=== PATIENT | female | born 2000 | race Caucasian/White ===

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

== ENCOUNTER 2022-07-10 16:05 | Emergency (ER) | payer OTHER, SELFPAY ==
[2022-07-10 16:16] VITALS: BP 129/70; PULSE 86; RESP 18; TEMP 37.2; O2SAT 99; BMI 20.1
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
== END 2022-07-10 17:43 | disposition home or self-care (01) ==
PROVIDERS: Emergency Provider Emergency Medicine
DX: S39.012A Strain of muscle, fascia and tendon of lower back, initial encounter (principal); R51.9 Headache, unspecified; V43.52XA Car driver injured in collision with other type car in traffic accident, initial encounter; Y93.9 Activity, unspecified; Y92.410 Unspecified street and highway as the place of occurrence of the external cause; Y99.9 Unspecified external cause status
CPT/HCPCS: 99283

== ENCOUNTER 2022-09-15 22:08 | Emergency (ER) | payer MEDICAID, SELFPAY ==
[2022-09-15 22:16] VITALS: BP 119/79; PULSE 83; RESP 18; TEMP 36.8; O2SAT 100; BMI 21.0
--- OUTSIDE RECORDS SUMMARY | 2022-09-15 23:27 | XMS_ITS | Continuity of Care Document ---
Author Name Unknown Organization [facility] er Address [address] [address]- Care Team Providers Care Devops Consultant Name Role Phone Jun Leslie GRULLON Primary Care Physician Encounter [facility] Date(s): 05/06/19 - 06/11/[address] [address]- [facility] Attending Physician: Carmine Mcadams Admitting Physician: Carmine Mcadams Allergies, Adverse Reactions, Alerts No Known Medication Allergies
--- OUTSIDE RECORDS SUMMARY | 2022-09-15 23:27 | XMS_ITS | Continuity of Care Document ---
Author Name Unknown Organization [facility] er Address [address] [address]- Care Team Providers Care Geodetic Survey Director Name Role Phone Jun Leslie GRULLON Primary Care Physician [phone] Encounter [facility] Date(s): 05/06/19 - 07/02/[address] [address]- [facility] Attending Physician: Carmine Mcadams Admitting Physician: Carmine Mcadams Allergies, Adverse Reactions, Alerts No Known Medication Allergies
--- OUTSIDE RECORDS SUMMARY | 2022-09-15 23:27 | XMS_ITS | Continuity of Care Document ---
Author Name Unknown Organization [facility] er Address [address] [place] [address]- Care Team Providers Care Hand I Tube Bender Name Role Phone Jun Leslie GRULLON Primary Care Physician Encounter [facility] Date(s): 05/06/19 - 06/25/[address] [address]- [facility] Attending Physician: Carmine Mcadams Admitting Physician: Carmine Mcadams Allergies, Adverse Reactions, Alerts No Known Medication Allergies
--- NOTE | 2022-09-15 23:33 | ED_ITS ---
HPI - Female Genitourinary General Chief complaint: Urogenital-Female Stated complaint: ? cyst vaginal area Time Seen by Provider: 09/15/22 23:24 Source: patient Mode of arrival: ambulatory Limitations: no limitations History of Present Illness HPI Narrative: 22 year old female currently sexually active presenting to the emergency department for STD testing and a small lump to the left labia times few days worsening. Patient reports that she is having some brown discharge that is foul smelling however she is not sure if this is her. Or abnormal discharge. Patient also reporting swelling to the left labia she tells me she is not sure if it is a bump for an abscess, she tells me it is slightly uncomfortable and itchy. Denies fevers, chills, nausea, vomiting, headache, vision changes, abdominal pain, chest pain, shortness of breath, changes in bowel habits, dysuria. Patient is interested in prophylactic STD treatment Related Data Previous Rx's Medication Instructions Recorded prednisone 50 mg tablet 50 mg PO DAILY 5 days #5 tabs 04/01/20 ibuprofen 400 mg tablet 400 mg PO Q6H PRN pain #20 tabs 07/10/22 doxycycline hyclate 100 mg capsule 100 mg PO BID 10 days #20 caps 09/15/22 metronidazole 500 mg tablet 500 mg PO BID 7 days #14 tabs 09/15/22 Allergies Allergy/AdvReac Type Severity Reaction Status Date / Time No Known Allergies Allergy Verified 09/15/22 22:18 [No Known Allergies*] Review of Systems Review of Systems: Constitutional : No Weight loss, No Fever, No Chills, No Fatigue, No Malaise ENT/Mouth : No sore throat, No Rhinorrhea Eyes: No Eye Pain, No Swelling, No Redness Cardiovascular : No Chest Pain, No SOB, No Dyspnea on Exertion, No Orthopnea, No Edema, No Palpitations Respiratory : No Cough, No Sputum, No Wheezing Gastrointestinal : No Nausea, No Vomiting, No Diarrhea, No Constipation, No abdominal Pain, No Hematochezia, No Melena Genitourinary : No Dysuria, No Urinary Frequency, No Hematuria, + vaginal discharge Musculoskeletal : No joint pain, No Myalgias, No Joint Swelling Skin : No Skin Lesions, No rash Neuro : No Weakness, No Numbness, No Dizziness, No Headache Psych : No Anxiety/Panic, No Depression Heme/Lymph: No Bruising, No Bleeding,No Lymphadenopathy Endocrine : No Polyuria, No Polydipsia All other systems reviewed and are negative Yes all other systems are reviewed and are negative [facility] Past Medical History Attestation statement: The following information was validated with the patient. Source: old records reviewed and nursing notes reviewed Medical History Patient denies medical problems Surgical History No pertinent past surgical history Social History Social History Alcohol intake: never Advance Directives: No Physical Exam Vital Signs: Vital Signs: Last Vital Signs Temp 98.2 F 09/15/22 22:16 Pulse 83 09/15/22 22:16 Resp 18 09/15/22 22:16 BP 119/79 09/15/22 22:16 Pulse Ox 100 09/15/22 22:16 O2 Del Method Room Air 09/15/22 22:16 BMI result Body Mass Index 21.0 Vital signs stable Appearance: Alert.? Oriented X3.? No acute distress.? Head: Normocephalic, atraumatic, no step-offs or deformities Eyes: Pupils equal, round and reactive to light.? ENT: Pharynx normal.? Neck: Normal inspection.? Neck supple.? CVS: Normal heart rate and rhythm.? Pulses normal.? Respiratory: No respiratory distress.? Breath sounds normal.? Abdomen: Soft and nontender.? Skin: Skin warm and dry.? Normal skin color.? Normal skin turgor.? Extremities: No lower extremity edema.? No calf ttp. 5/5 strength to bilateral upper and lower extremities Sensitive exam: Patient refusing internal exam however external exam with mild swelling to the left labia, unable to appreciate a bartholian cyst or abscess. Foul smelling discharge noted appears yellow/green. Neuro: Oriented X 3.? No motor deficit.? No sensory deficit. CN 2-12 intact Course Reevaluation(s) Reevaluation #1: Patient to be discharged. Patient com medications here. Advised to follow-up with PCP and OBGYN. Educated patient on diagnosis and treatment plan, answered all question, patient verbalizes understanding. At this time patient will be discharged home, advised to return with new or worsening symptoms. Educated on worrisome signs and symptoms and when to return. At this time I feel comfortable discharge home. Time: 23:48 Medications Administered Discontinued Medications Generic Name Dose Route Start Last Admin Trade Name Harriett PRN Reason Stop Dose Admin Ceftriaxone Sodium 500 mg/ 0 mg 09/15/22 23:34 09/16/22 00:02 Lidocaine HCl 1 ml IM 09/15/22 23:35 500 kit ONCE ONE Administration Doxycycline Monohydrate 100 mg 09/15/22 23:34 09/16/22 00:02 Doxycycline Monohydrate 100 Mg Capsule PO 09/15/22 23:35 100 mg ONCE ONE Administration Metronidazole 500 mg 09/15/22 23:34 09/16/22 00:02 Metronidazole 500 Mg Tablet PO 09/15/22 23:35 500 mg ONCE ONE Administration Medical Decision Making Medical Decision Making [facility] Narrative: 2348 22-year-old female presents for evaluation of a swollen left labia she has concern for possible cyst and vaginal discharge concern for STDs. Physical exam significant for Patient refusing internal exam however external exam with mild swelling to the left labia, unable to appreciate a bartholian cyst or abscess. Foul smelling discharge noted appears yellow/green. Patient adamantly refusing pelvic exam Concerns for STDs. No signs of herpes on exam. Denies painful intercourse unlikely that this is PID Patient agrees to prophylactic treatment for gonorrhea, chlamydia and trichomonas. 500mg IM ceftriaxone has been given here and scripts for doxycycline 100 mg po BID X 7 days and metronidazole 500 mg po BID X 7 days have been given to the patient. Educated on safe sex practices, full pannel STD testing and speaking to? partners on possible STD. Differential Diagnosis Differential Diagnoses: The differential diagnosis associated with the presentation includes Concerns for STDs. No signs of herpes on exam. Denies painful intercourse unlikely that this is PID Admission/Observation Consideration of admission/observation: Escalation of care including admission/observation considered Not indicated Core Measures AMI core measures followed: Yes Measure exclusions: not indicated Critical Care Time Critical Care Time Critical Care Time: No Discharge Plan Discharge Clinical Impression: Encounter for assessment of STD exposure, Swelling of labia Patient Disposition: Home, Self-Care Additional Instructions: Take your medications as prescribed. If you were prescribed antibiotics today, it is important that you take your medication to their entirety, do not skip any doses, do not finish them early. Follow-up with your primary care provider this week. Return to the emergency department with new or worsening symptoms. Such as fevers, chills, chest pain, shortness of breath, nausea, vomiting, dizziness, headache, vision changes, lethargy In case of emergency call 911 You were treated here today with ceftriaxone, a medication that treats gonorrhea. I have sent to your pharmacy Metronidazole that covers trichomonas, and Doxycycline which covers for chlamydia. Please be reevaluated by a healthcare provider after completing your antibiotics. Do not stop them early, do not skip any doses. Until you are reevaluated by a health care provider please practice safe sex as disucussed. Please also have a conversation with your sexual partners.? I also advise you to obtain full panel STD testing to test for other STDs including HIV, Hepatitis B & C and syphilis with your PCP or a local clinic. Apply warm compresses to affected area Prescriptions: New doxycycline hyclate 100 mg capsule 100 mg PO BID 10 Days Qty: 20 0RF metronidazole 500 mg tablet 500 mg PO BID 7 Days Qty: 14 0RF No Action prednisone 50 mg tablet 50 mg PO DAILY 5 Days Qty: 5 0RF ibuprofen 400 mg tablet 400 mg PO Q6H PRN (Reason: pain) Qty: 20 0RF Referrals: [facility] [place] [facility] [Provider Group] - 2 days [facility] [Primary Care Provider] - 2 days
[2022-09-16] MEDS: Doxycycline Monohydrate 100 MG CAPSULE PO (00:02)
[2022-09-16] MEDS: metroNIDAZOLE 500 MG TABLET PO (00:02)
[2022-09-16] MEDS: cefTRIAXone sodium 500 MG, Lidocaine HCl 1 % MPF 1 ML IM (00:02)
[2022-09-16 00:19] LABS: Appearance Urine Cloudy; Color Urine Yellow; Glucose Urine UA Negative (Negative); Leukocyte Esterase Urine Moderate (2+) (Negative); Nitrite Urine Negative (Negative); PH 5.5 (5.0-9.0); Specific Gravity - Urine >= 1.030 (1.005-1.025); UMIC TRIGGER UACC YES; Urine Blood Trace (Negative); Urine Ketones Trace mg/dL (Negative); Urine Protein 30 (1+) mg/dL (Neg-Trace)
[2022-09-16 00:21] LABS: UPreg QC Valid YES; Urine Pregnancy NEGATIVE (NEGATIVE)
[2022-09-16 00:23] LABS: Bacteria Urine Trace (None Seen); Hyaline Casts Urine 0-2 /LPF (0-2); RBC Urine >20 /HPF (0-2); UACC Culture Trigger YES; WBC Urine 21-50 /HPF (0-5)
[2022-09-16 05:59] LABS: CT PCR DETECTED (Not Detect.); NG PCR NOT DETECTED (Not Detect.)
== END 2022-09-16 00:23 | disposition home or self-care (01) ==
PROVIDERS: Physician Assistant; Emergency Provider Internal Medicine
DX: N76.2 Acute vulvitis (principal); Z20.2 Contact with and (suspected) exposure to infections with a predominantly sexual mode of transmission; Z79.899 Other long term (current) drug therapy
CPT/HCPCS: 0353U; 81001; 81025; 87086; 96372; 99282; 99284; J0696

== ENCOUNTER 2022-09-27 21:18 | Emergency (ER) | payer MEDICAID, SELFPAY ==
[2022-09-27 21:20] VITALS: BP 117/77; PULSE 74; RESP 18; TEMP 37.1; O2SAT 99; BMI 29.9
--- NOTE | 2022-09-27 23:27 | ED.FEMALEGU ---
HPI - Female Genitourinary General Chief complaint: Urogenital-Female Stated complaint: Abscess on vaginal area Time Seen by Provider: 09/27/22 22:39 Source: patient Mode of arrival: ambulatory History of Present Illness HPI Narrative: 22-year-old female who presents for evaluation labial swelling that was initially evaluated on 09/15. Patient denies any further difficulties or complaints. Related Data Previous Rx's Medication Instructions Recorded prednisone 50 mg tablet 50 mg PO DAILY 5 days #5 tabs 04/01/20 ibuprofen 400 mg tablet 400 mg PO Q6H PRN pain #20 tabs 07/10/22 doxycycline hyclate 100 mg capsule 100 mg PO BID 10 days #20 caps 09/15/22 metronidazole 500 mg tablet 500 mg PO BID 7 days #14 tabs 09/15/22 Allergies Allergy/AdvReac Type Severity Reaction Status Date / Time No Known Allergies Allergy Verified 09/27/22 21:20 [No Known Allergies*] Review of Systems Review of Systems: Pertinent positives and negatives as stated in HPI [facility] Past Medical History Source: nursing notes reviewed Medical History Patient denies medical problems Surgical History No pertinent past surgical history Social History Social History Alcohol intake: never Advance Directives: No Advance Directives Information Provided: No Physical Exam Vital Signs: Vital Signs: Last Vital Signs Temp 98.8 F 09/27/22 21:20 Pulse 74 09/27/22 21:20 Resp 18 09/27/22 21:20 BP 117/77 09/27/22 21:20 Pulse Ox 99 09/27/22 21:20 O2 Del Method Room Air 09/27/22 21:20 BMI result Body Mass Index 29.9 VITAL SIGNS: Reviewed. GENERAL: Well developed, well nourished, in no acute distress. HEAD: Normocephalic/atraumatic EYES: PERRLA, EOMI LUNGS: Normal breath sounds. No adventitious sounds or accessory muscle use. SpO2<99> CARDIOVASCULAR: Regular rate and rhythm without noted murmurs ABDOMEN: Soft, non-tender, non-distended with bowel sounds. : [Managing Broker-Neli]- there is no labial swelling no evidence of are the 1 abscess/cyst MUSCULOSKELETAL: No tenderness, deformities, or effusions noted on gross inspection. EXTREMITIES: No cyanosis, clubbing or edema. SKIN: Inspection of the skin reveals no rashes NEUROLOGIC: Alert and oriented x 4. Strength and sensation to light touch were grossly intact x 4. Medical Decision Making Medical Decision Making MDM Narrative: 22-year-old female who presents for evaluation labial swelling, under evaluation with cobol application developer at bedside there are no noted abnormalities at this time. Patient reassured and discharged home in stable condition. Patient was treated for STD at appointment on 09/15. External Record Review External record reviewed: Outpatient record and Prior outpatient labs Discharge Plan Discharge Clinical Impression: Abscess re-check Patient Disposition: Home, Self-Care Instructions: Warm Compress or Soak (ED) Additional Instructions: Return to the emergency room for any worsening symptoms. Prescriptions: No Action prednisone 50 mg tablet 50 mg PO DAILY 5 Days Qty: 5 0RF ibuprofen 400 mg tablet 400 mg PO Q6H PRN (Reason: pain) Qty: 20 0RF doxycycline hyclate 100 mg capsule 100 mg PO BID 10 Days Qty: 20 0RF metronidazole 500 mg tablet 500 mg PO BID 7 Days Qty: 14 0RF
[2022-09-27 23:40] VITALS: BP 120/62; PULSE 76; RESP 16; O2SAT 99
== END 2022-09-27 23:48 | disposition home or self-care (01) ==
PROVIDERS: Emergency Provider Student in an Organized Health Care Education/Training Program
DX: N76.4 Abscess of vulva (principal)
CPT/HCPCS: 99283

== ENCOUNTER 2023-03-10 15:22 | Outpatient (AMB) | payer MEDICAID, SELFPAY ==
[2023-03-10 15:24] VITALS: BP 118/68; PULSE 78; O2SAT 99; BMI 29.4
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
== END 2023-03-10 15:55 | disposition home or self-care (01) ==
PROVIDERS: Visit Provider Nurse Practitioner Family
DX: Z00.00 Encounter for general adult medical examination without abnormal findings (principal); M54.50 Low back pain, unspecified; Z11.3 Encounter for screening for infections with a predominantly sexual mode of transmission; F41.9 Anxiety disorder, unspecified; Z55.0 Illiteracy and low-level literacy
CPT/HCPCS: 99385

== ENCOUNTER 2023-03-10 15:59 | Outpatient (REF) | payer OTHER, SELFPAY ==
[2023-03-10 16:30] LABS: MANUAL DIFF FLAG NO
[2023-03-10 18:07] LABS: Basophils Percent Auto 0.4 % (0-2); Eosinophils Absolute Auto 0.1 X10*3/uL (0.0-0.4); Hematocrit 40.8 % (37.0-47.0); Hemoglobin 12.6 g/dl (12.0-16.0); Imm Gran Abs Auto 0.01 X10*3/uL (0.00-0.03); Imm Gran Pct Auto 0.2 % (0.0-0.4); Lymphocytes Absolute Auto 1.6 X10*3/uL (1.2-4.9); Lymphocytes Percent Auto 32.7 % (20-40); Mean Corpuscular HGB Conc 30.9 g/dl (31.0-35.0); Mean Corpuscular Hemoglobin 24.5 pg (27.0-33.0); Mean Corpuscular Volume 79.2 fL (80.0-98.0); Mean Platelet Volume 11.7 fL (9.4-12.3); Monocytes Absolute Auto 0.3 X10*3/uL (0.1-1.2); Monocytes Percent Auto 6.2 % (2-11); Neutrophils Absolute Auto 2.9 x10*3/uL (2.0-8.3); Neutrophils Percent Auto 59.5 % (45-73); Platelet Count 300 X10*3/uL (160-400); Red Blood Count 5.15 X10*6/uL (4.20-5.50); Red Cell Distribution Width 15.7 % (11.0-16.0); White Blood Count 4.8 X10*3/uL (4.8-10.8)
[2023-03-10 18:46] LABS: Alanine Aminotransferase 13 U/L (0-31); Albumin Level 4.5 g/dL (3.5-5.0); Alkaline Phosphatase 28 U/L (39-117); Anion Gap 11 (12-20); Aspartate Amino Transferase 20 U/L (5-31); Bilirubin Total 0.4 mg/dL (0.0-1.0); Blood Urea Nitrogen 7 mg/dL (9-16); Calcium 9.5 mg/dL (8.4-10.2); Carbon Dioxide 23 mmol/L (22-29); Chloride 109 mmol/L (96-108); Estimated Glomerular Filt Rate > 60; Glucose Random 84 mg/dL (60-115); Potassium 3.9 mmol/L (3.3-5.1); Sodium 139 mmol/L (135-145); Total Protein 8.3 g/dL (6.5-8.0)
[2023-03-10 19:03] LABS: TSH reflex Free T4 2.66 uIU/mL (0.32-4.0); Vitamin D 25-OH Total 17.4 ng/mL (>30)
[2023-03-10 19:17] LABS: Folate 16.5 ng/mL (> or = 4.0); Vitamin B12 473 pg/mL (200-900)
[2023-03-11 08:44] LABS: HBS Num1 0.33 mIU/mL (0-7.99); HBc Num1 0.21 S/CO (0.00-0.79); HBsAGNum1 0.41 S/CO (0.00-0.99); HIV AB/AG Nonreactive (Nonreactive); HIV Num 1 0.07 S/CO (0.00-0.99); Hepatitis B Core Antibody Nonreactive (Nonreactive); Hepatitis B Surface Antigen Negative (Negative); ~HepC Num1 0.67 S/CO (0.00-0.79); ~Hepatitis B Surface Antibody NONREACTIVE (Nonreactive); ~Hepatitis C Antibody Nonreactive (Nonreactive)
[2023-03-11 08:45] LABS: Syphilis Screen Nonreactive (Nonreactive)
== END 2023-03-10 16:00 | disposition home or self-care (01) ==
LOC: HO.LAB 15:59
PROVIDERS: PCP Nurse Practitioner Family; Visit Provider Nurse Practitioner Family
DX: Z00.00 Encounter for general adult medical examination without abnormal findings (principal); Z11.3 Encounter for screening for infections with a predominantly sexual mode of transmission
CPT/HCPCS: 0353U; 80053; 82306; 82607; 82746; 84443; 85025; 86704; 86706; 86780; 86803; 87340; 87389

== ENCOUNTER 2023-03-19 21:27 | Emergency (ER) | payer OTHER, SELFPAY ==
[2023-03-19 21:37] VITALS: BP 114/77; PULSE 63; RESP 18; TEMP 36; O2SAT 100; BMI 21.9
[2023-03-19 22:29] VITALS: BP 108/60; PULSE 71; RESP 14; TEMP 36.4; O2SAT 100
--- NOTE | 2023-03-19 23:10 | ED.GENADULT ---
HPI - General Adult General Chief complaint: Skin/Abscess/Foreign Body Stated complaint: possible abscess Time Seen by Provider: 03/19/23 22:22 Source: patient, RN notes reviewed and old records reviewed Mode of arrival: ambulatory Limitations: no limitations History of Present Illness HPI narrative: 23-year-old female presents for evaluation of ?extra skin by my vagina. ? Patient states that she had an abscess in the area in September which was treated with antibiotics only This has since resolved. Patient reports that she feels as if there is ?extra skin with the abscess was. ? She states that it is not painful when she touches the area She has some discomfort when she urinates She has some abnormal vaginal discharge but denies any abnormal vaginal bleeding She reports that she was recently tested for sexually transmitted infections and ?everything was negative. ? Related Data Previous Rx's Medication Instructions Recorded ibuprofen 400 mg tablet 400 mg PO Q8H PRN pain #14 tabs 03/10/23 cholecalciferol (vitamin D3) 50 50 mcg PO DAILY #90 tabs 03/19/23 mcg (2,000 unit) tablet Allergies Allergy/AdvReac Type Severity Reaction Status Date / Time No Known Allergies Allergy Verified 03/19/23 21:36 [No Known Allergies*] Review of Systems Constitutional: Constitutional: Denies chills and Denies fever(s) Cardiovascular: Cardiovascular: Denies chest pain and Denies dyspnea Respiratory: Respiratory: Denies dyspnea Gastrointestinal: Gastrointestinal: Denies abdominal pain Genitourinary: Genitourinary: Denies dyspareunia, Reports dysuria, Reports vaginal discharge and Denies vaginal dryness Musculoskeletal: Musculoskeletal: Denies back pain Integumentary/Breasts: Skin/Breast: Denies rash PMFSH Past Medical History Medical History Concern about complication without diagnosis Patient denies medical problems Surgical History No pertinent past surgical history Family History Family History (Updated 03/10/23 @ 15:38 by MISAEL Arredondo) Mother No problems noted. Father No problems noted. Social History Social History Housing: House Alcohol intake: never Patient Tobacco Use Status: Never used Tobacco Advance Directives: No Advance Directives Information Provided: No service: No Current occupational status: employed Cognitive needs: No Hearing needs: No Vision needs: No Physical Exam ED Vital Signs: Vital Signs - 24 hr 03/19/23 21:37 03/19/23 22:29 Temperature 96.8 F 97.6 F Pulse Rate 63 71 Respiratory Rate 18 14 Blood Pressure 114/77 108/60 Pulse Oximetry 100 100 Oxygen Delivery Method Room Air Room Air BMI result Body Mass Index 21.9 Const General: healthy appearing, comfortable, no acute distress, alert and awake Nutritional Appearance: well nourished Orientation/consciousness: patient oriented x3 HENMT Head: Yes normocephalic and Yes atraumatic Eyes Eyelids: Yes eyelids normal Conjunctivae: conjunctivae normal Sclerae: sclerae normal Corneas: corneas normal Pupils: Equal, round and reactive pupils present EOM: EOMs intact bilaterally Neck Neck: Yes full ROM Resp Effort & Inspection: normal respiratory effort, able to speak in complete sentences and not labored Cardio Rate: regular rate Rhythm: regular rhythm GI Inspection: No distended Palpation (GI): Soft to palpation, not firm, nontender, no guarding and not rigid External Female Exam: normal external appearance, normal appearance of the urethra, No erythema, No externally tender, No external swelling and No lesion Speculum Exam - Vagina: normal appearance of the vagina, abnormal vaginal discharge white, not erythematous and no foreign bodies Speculum Exam - Cervix: abnormal appearance of the cervix (Patient has mild erythema around the cervical os. No drainage), Cervical os closed, no lesions and no masses OB/external & speculum: no foreign bodies Skin General skin exam: elasticity normal Neuro General: patient oriented x3 Cranial nerves: Yes Equal, round and reactive pupils present and Yes Bilaterally intact EOM present Cognition (Neuro): normal cognition Extrem Other: Moving all extremities well without any obvious deformities Medical Decision Making Medical Decision Making MDM Narrative: [age] his female presents for evaluation of which she feels to be an abnormal area in her vagina. She has no edema, no erythema, no lesions to the labia or external genitalia. There is mild erythema to the cervix and a minimal amount of white vaginal discharge. Swabs were sent for gonorrhea, chlamydia, yeast, bacterial vaginosis, trichomoniasis. Will get a UA if she has some difficulty urinating. Patient will be given OBGYN follow-up Differential Diagnosis Differential Diagnoses: The differential diagnosis associated with the presentation includes Yeast infection Bacterial vaginosis Trichomoniasis Gonorrhea Chlamydia Bartholin cyst Urethral diverticulum Lab Data Labs: Lab Results 03/19/23 Range/Units 23:48 Urine Color Yellow Urine Appearance Clear Urine pH 6.0 (5.0-9.0) Ur Specific [place] >= 1.030 H (1.005-1.025) Urine Protein Negative (Neg-Trace) mg/dL Urine Glucose (UA) Negative (Negative) mg/dL Urine Ketones Negative (Negative) mg/dL Urine Blood Negative (Negative) Urine Nitrite Negative (Negative) Ur Leukocyte Esterase Negative (Negative) Discharge Plan Discharge Clinical Impression: Visit for pelvic exam Patient Disposition: Home, Self-Care Additional Instructions: You tested negative for yeast and trichomoniasis. We will call you if your gonorrhea, chlamydia, bacterial vaginosis test returned positive You should follow-up with doctors Nigel, OBGYN Prescriptions: No Action cholecalciferol (vitamin D3) 50 mcg (2,000 unit) tablet 50 mcg PO DAILY Qty: 90 0RF ibuprofen 400 mg tablet 400 mg PO Q8H PRN (Reason: pain) Qty: 14 0RF Referrals: Gamaliel Leon MD [Physician] - (pelvic pain)
[2023-03-19 23:55] LABS: Appearance Urine Clear; Color Urine Yellow; Glucose Urine UA Negative (Negative); Leukocyte Esterase Urine Negative (Negative); Nitrite Urine Negative (Negative); Specific Gravity - Urine >= 1.030 (1.005-1.025); Urine Blood Negative (Negative); Urine Ketones Negative (Negative); Urine Protein Negative (Neg-Trace)
[2023-03-20] VITALS: BP 123/69; PULSE 88; RESP 16; TEMP 36.7; O2SAT 98
[2023-03-20 00:08] LABS: Bacteria Urine None Seen (None Seen); Hyaline Casts Urine 0-2 /LPF (0-2); RBC Urine 0-2 /HPF (0-2); Squamous Epithelial Cell Urine 0-2 /HPF (0-2); WBC Urine 0-5 /HPF (0-5)
--- NOTE | 2023-03-20 00:45 | PC.NURSE ---
pt a&o, no sob or chest pain, reviewed discharge instructions with pt. pt verbalized understanding.
[2023-03-20 03:27] LABS: CT PCR NOT DETECTED (Not Detect.); NG PCR NOT DETECTED (Not Detect.)
[2023-03-20 11:16] LABS: BV Int Neg Control Negative (Negative); BV Int Pos Control Positive (Positive)
== END 2023-03-20 00:46 | disposition home or self-care (01) ==
PROVIDERS: Physician Assistant; Emergency Provider Emergency Medicine
DX: N89.8 Other specified noninflammatory disorders of vagina (principal)
CPT/HCPCS: 0353U; 81001; 87480; 87510; 87660; 99284

== ENCOUNTER 2023-03-26 09:35 | Outpatient (AMB) | payer OTHER, SELFPAY ==
[2023-03-26 09:48] VITALS: BP 100/66; BMI 29.6
--- NOTE | 2023-03-26 09:48 | MHC.OFFVIS ---
Intake Vital Signs 03/26/23 09:48 Height 5 ft 2 in Weight 162 lb BMI 29.6 BP 100/66 Intake Visit Reasons: Er follow up Machine Wedger Required: No Information Interpreted: non-clinical & clinical Deputy Court: Deputy Court Present (Aidyn) Allergies No Known Allergies [No Known Allergies*] Allergy (Verified 03/26/23 09:50) Is last menstrual period known: No Post menopausal: No HPI HPI Comments History of Present Illness Details She is here for ED follow up. She was recently seen at ED for having a ?abscess, swelling (bulging) of tissue from the vaginal opening, reports extra skin in her vagina. Denies drainage, is non tender. She denies any painful intimacy or urination. No urinary dribbling, UTI, or dyspareunia. Currently sexually active, does not use condoms and is interested in future . She reports multiple sexual partners, uses condoms at times. Chlamydia treated fro 08/2022. Reports regular monthly menses. She does not want control, considering a future . Hx. of SAB. No pap history. [facility] Medical History Concern about complication without diagnosis Patient denies medical problems Surgical History No pertinent past surgical history Family History Mother No problems noted. Father No problems noted. Social History Housing: House Alcohol intake: never Patient Tobacco Use Status: Never used Tobacco service: No Current occupational status: employed Cognitive needs: No Hearing needs: No Vision needs: No Female Reproductive History Menstrual Duration of menses: 3-5 days control method: none Total pregnancies: 1 Ab spontaneous: 1 Physical Exam Vital Signs: Last Vital Signs BP 100/66 03/26/23 09:48 BMI result Body Mass Index 29.6 Const General: cooperative, healthy appearing, comfortable, no acute distress, well developed, alert and awake Other: General: Yes bladder normal to palpation External Female Exam: normal external appearance and lesion (chrsisy urethra mass, 3cm-rounded, smooth, non tender, protruding from labia) Speculum Exam - Vagina: normal appearance of the vagina, normal palpation and normal vaginal discharge Speculum Exam - Cervix: normal appearance of the cervix and normal palpation Bimanual exam- vagina & uterus: normal bimanual exam, normal palpation, bladder normal to palpation and normal palpation Bimanual Exam- Adnexa, other: normal adnexae and no masses Results Reviewed Results Reviewed: Laboratory Tests 03/19/23 23:04 Chlam trachomat DNA PCR NOT DETECTED Gardnerella DNA Probe Negative N.gonorrhoeae DNA (PCR) NOT DETECTED Trichomonas DNA Probe Negative Assessment & Plan Assessment & Plan (1) Visit for pelvic exam: Code(s): Z01.419 - Encounter for gynecological examination (general) (routine) without abnormal findings Plan: Discussed: Differential diagnosis: urethral divericulum, mass-unknown, Skeene's gland abscess, vaginal leiomyoma, Maria C's cyst, benign, malignant tumors, and vaginal wall inclusion cyst. MRI ordered. Follow up in person for results. Encouraged to use condoms for STD and prevention- and not become during work up for now. Schedule annual/pap. All of her questions and concerns were addressed to the best of my ability and shared decision making. She is agreeable to plan of care. (2) Periurethral mass: Code(s): N36.8 - Other specified disorders of urethra Orders: Orders MR pelvis wo/w con Today N36.8 - Other specified disorders of urethra Coding Level of Care Code New Pt Level 4 (25100) Diagnoses Visit for pelvic exam Z01.419 Periurethral mass N36.8
== END 2023-03-26 10:30 | disposition home or self-care (01) ==
PROVIDERS: PCP Nurse Practitioner Family; Visit Provider Advanced Practice Midwife
DX: Z01.419 Encounter for gynecological examination (general) (routine) without abnormal findings (principal); N36.8 Other specified disorders of urethra
CPT/HCPCS: 99204

== ENCOUNTER → 2023-03-26 09:35 | Outpatient (BNVA) | payer OTHER, SELFPAY | PROVIDERS: PCP Nurse Practitioner Family; Visit Provider Advanced Practice Midwife ==

== ENCOUNTER 2023-05-04 08:08 | Outpatient (REF) | payer OTHER, SELFPAY ==
--- NOTE | ~2023-05-04 | MR_ITS ---
EXAMINATION: MR PELVIS WITHOUT AND WITH CONTRAST CLINICAL INFORMATION: Vaginal wall mass. COMPARISON: None available. TECHNIQUE: Sagittal, axial and coronal sequences through the pelvis with and without contrast. Patient received 6 mL IV Gadavist contrast. FINDINGS: The uterus is anteverted and measures 6.5 x 3.5 x 5 cm in sagittal AP and transverse dimension. Endometrial thickness is normal measuring 1.5 cm. The junctional zone does not appear thickened. There is question of a small hypoechoic lesion in the anterior upper uterine body that could represent a small fibroid. This measures 5 mm. No other focal uterine lesion. The cervix is normal. There is a 3 x 1.6 x 2.7 cm lesion adjacent to the anterior vaginal wall. This is high signal on T1-weighted sequences, high signal on T2-weighted sequences. This demonstrates no solid component. This demonstrates minimal wall enhancement. This causes slight mass effect on the urethra. The ovaries are normal. The right ovary measures 2.8 x 3.5 x 3 cm. The left ovary measures 3 x 2.4 x 2.2 cm. No adnexal mass. No fluid in the pelvis. Bladder not optimally distended but appears unremarkable. Visualized bowel is normal. No ascites or adenopathy. No hernia. Vascular structures are normal. Bony structures are normal. MR/MR pelvis wo/w con IMPRESSION: 3 x 1.6 x 2.7 cm complex cyst in the anterior vaginal wall with high attenuation on T1-weighted sequences suggestive of a proteinaceous fluid or blood product. No solid component. Differential would include a vaginal inclusion cyst such as a Maria C's duct cyst and urethral diverticulum.
[2023-05-04] MEDS: gadobutroL 7.5 ML VIAL IVPUSH (09:00)
== END 2023-05-04 08:09 | disposition home or self-care (01) ==
LOC: HO.MRI 08:08
PROVIDERS: PCP Nurse Practitioner Family; Visit Provider Advanced Practice Midwife
DX: N36.8 Other specified disorders of urethra (principal)
CPT/HCPCS: 72197; A9585

== ENCOUNTER 2023-05-20 14:08 | Outpatient (AMB) | payer OTHER, SELFPAY ==
[2023-05-20 14:22] VITALS: BP 120/86; BMI 28.9
--- NOTE | 2023-05-20 14:22 | MHC.OFFVIS ---
Intake Vital Signs 05/20/23 14:22 Height 5 ft 2 in Weight 158 lb BMI 28.9 BP 120/86 Intake Visit Reasons: MRI Follow up Accompanied by: Significant Other Allergies No Known Allergies [No Known Allergies*] Allergy (Verified 05/20/23 14:22) Is last menstrual period known: Yes Last menstrual period: 05/14/23 HPI HPI Comments History of Present Illness Details Patient is here today for her test results of her MRI, due to a chronic chrissy-urethral cyst. Partner, Marisela is present. Currently concerned it has recently enlarged, is tender, and when pressed leaks brown discharge. She denies any fever, flu-like symptom, dysuria or difficulties urinating. [facility] Medical History Concern about complication without diagnosis Patient denies medical problems Surgical History No pertinent past surgical history Family History Mother No problems noted. Father No problems noted. Social History Housing: House Alcohol intake: never Patient Tobacco Use Status: Never used Tobacco service: No Current occupational status: employed Cognitive needs: No Hearing needs: No Vision needs: No Female Reproductive History Menstrual Date of last menstrual period: 05/14/23 Review of Systems Const All systems reviewed & are unremarkable except as noted in HPI and below Physical Exam Vital Signs: Last Vital Signs BP 120/86 05/20/23 14:22 BMI result Body Mass Index 28.9 Const General: cooperative, healthy appearing and no acute distress Orientation/consciousness: patient oriented x3 GI Inspection: Yes normal to inspection Rectal Exam - Female: visual inspection normal Other: Urethral tissue mass, cystic consistency tender, not able to elicit drainage, protruding from the introitus, palpated to be approximately 4-5 cm Neuro General: patient oriented x3 Results Reviewed Results Reviewed: [address] [address] Magnetic Resonance Report Signed Patient: Tracee Barker MR#: [id number] : 2000 Acct:[id number] Age/Sex: 23 / F ADM Date: 05/04/23 Loc: HO.MRI Attending Dr: Angela Galvan CNM Ordering Physician: Angela Galvan CNM Date of Service: 05/04/23 Procedure(s): MR pelvis wo/w con Accession Number(s): [id number] cc: Angela Galvan CNM; Do Soto EMAIL MANAGER~ EXAMINATION: MR PELVIS WITHOUT AND WITH CONTRAST CLINICAL INFORMATION: Vaginal wall mass. COMPARISON: None available. TECHNIQUE: Sagittal, axial and coronal sequences through the pelvis with and without contrast. Patient received 6 mL IV Gadavist contrast. FINDINGS: The uterus is anteverted and measures 6.5 x 3.5 x 5 cm in sagittal AP and transverse dimension. Endometrial thickness is normal measuring 1.5 cm. The junctional zone does not appear thickened. There is question of a small hypoechoic lesion in the anterior upper uterine body that could represent a small fibroid. This measures 5 mm. No other focal uterine lesion. The cervix is normal. There is a 3 x 1.6 x 2.7 cm lesion adjacent to the anterior vaginal wall. This is high signal on T1-weighted sequences, high signal on T2-weighted sequences. This demonstrates no solid component. This demonstrates minimal wall enhancement. This causes slight mass effect on the urethra. The ovaries are normal. The right ovary measures 2.8 x 3.5 x 3 cm. The left ovary measures 3 x 2.4 x 2.2 cm. No adnexal mass. No fluid in the pelvis. Bladder not optimally distended but appears unremarkable. Visualized bowel is normal. No ascites or adenopathy. No hernia. Vascular structures are normal. Bony structures are normal. MR/MR pelvis wo/w con IMPRESSION: 3 x 1.6 x 2.7 cm complex cyst in the anterior vaginal wall with high attenuation on T1-weighted sequences suggestive of a proteinaceous fluid or blood product. No solid component. Differential would include a vaginal inclusion cyst such as a Maria C's duct cyst and urethral diverticulum. Dictated By: Sigrid Waters MD Assessment & Plan Assessment & Plan (1) Periurethral mass: Code(s): N36.8 - Other specified disorders of urethra (2) Encounter to discuss test results: Code(s): Z71.2 - Person consulting for explanation of examination or test findings Plan Reviewed ultrasound results with her and discussed the differential diagnoses: Including abscess, urethral diverticulum, Maria C cyst, [place]'s gland abscess. Due to her increase of symptoms today recommend her to be seen at [facility] for possible I & D. Referral placed to Urogynecology. All of her questions and concerns were addressed to the best of my ability and shared decision making. She is agreeable to the plan of care. Patient has a return visit in June for her annual. Orders: Referrals Urogynecology Referral N36.8 - Other specified disorders of urethra Coding Level of Care Code Est Pt Level 3 (23956) Diagnoses Periurethral mass N36.8 Encounter to discuss test results Z71.2
== END 2023-05-20 16:21 | disposition home or self-care (01) ==
LOC: HO.HWS 14:08
PROVIDERS: PCP Nurse Practitioner Family; Visit Provider Advanced Practice Midwife
DX: N36.8 Other specified disorders of urethra (principal); Z71.2 Person consulting for explanation of examination or test findings
CPT/HCPCS: 99213

== ENCOUNTER → 2023-05-20 14:08 | Outpatient (BNVA) | payer OTHER, SELFPAY | PROVIDERS: PCP Nurse Practitioner Family; Visit Provider Advanced Practice Midwife | DX: Z71.2 Person consulting for explanation of examination or test findings (principal); N36.8 Other specified disorders of urethra | CPT/HCPCS: 99212 ==

== ENCOUNTER 2023-07-16 14:17 | Outpatient (AMB) | payer OTHER, SELFPAY ==
[2023-07-16 14:30] VITALS: BP 102/64; BMI 29.3
--- NOTE | 2023-07-16 14:30 | MHC.OFFVIS ---
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 Her partner is present today for her visit. Doing well with concerns: Recently seen at [facility] for a vulvar abscess. 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 She tries to eat healthy and stays active with exercise. Regular monthly menses. Currently is sexually active. Not taking control or using condoms, she is open to a future . She denies vaginal itching and irritation. STI screening offered; she accepts. Denies family history of breast, ovarian or colon cancer. No Pap smear on record. [facility] Medical History Concern about complication without diagnosis Patient denies medical problems Surgical History No pertinent past surgical history Family History Mother No problems noted. Father No problems noted. Social History Housing: House Alcohol intake: never Patient Tobacco Use Status: Never used Tobacco service: No Current occupational status: employed Cognitive needs: No Hearing needs: No Vision needs: No Female Reproductive History Menstrual Duration of menses: 3-5 days Date of last menstrual period: 06/17/23 Total pregnancies: 1 Number of Living Children: 0 Ab spontaneous: 1 Review of Systems Const All systems reviewed & are unremarkable except as noted in HPI and below Reports as per HPI Eyes Reports no additional complaints ENT Reports no additional complaints Card Reports no additional complaints Resp Reports no additional complaints GI Reports as per HPI and Reports no additional complaints Reports as per HPI Musc Reports no additional complaints Skin/Breast Reports as per HPI Neuro Reports no additional complaints Psych Reports no additional complaints Endo Reports no additional complaints Salo/Lymph Reports no additional complaints Aller/Immun Reports no additional complaints Physical Exam Vital Signs: Last Vital Signs BP 102/64 07/16/23 14:30 BMI result Body Mass Index 29.3 Const General: cooperative, healthy appearing, no acute distress, well developed and alert Orientation/consciousness: patient oriented x3 HEENT Head: Yes normal to inspection Eyes General: appearance normal, both eyes and all related structures Neck Neck: Yes normal visual inspection Thyroid: Thyroid normal Chest Chest palpation & inspection: normal inspection of the chest and other (no puckering, dimpling, peau de orange, retraction, discharge, masses) Breast/axilla inspection: normal inspection of the breasts Breast/axilla palpation: normal palpation of the breasts Resp Effort & Inspection: normal respiratory effort GI Inspection: Yes normal to inspection Palpation (GI): Soft to palpation Rectal Exam - Female: deferred General: Yes bladder normal to palpation External Female Exam: normal external appearance and normal appearance of the urethra Speculum Exam - Vagina: normal appearance of the vagina, normal palpation, normal vaginal discharge and other (Emily urethral cyst palpable through the anterior vaginal aspect is smaller ) Speculum Exam - Cervix: normal appearance of the cervix, normal palpation and Other cervical findings present (Bled slightly with Pap) Bimanual exam- vagina & uterus: normal bimanual exam, normal palpation, uterine size normal, bladder normal to palpation, normal palpation and non-tender Bimanual Exam- Adnexa, other: no masses Skin General skin exam: no rashes or lesions noted Rashes: no rashes Neuro General: patient oriented x3 Cognition (Neuro): normal cognition Extrem General: Yes normal to inspection Psych Attitude: cooperative Thought process: Normal thought process present Assessment & Plan Assessment & Plan (1) Encounter for well woman exam with routine gynecological exam: Code(s): Z01.419 - Encounter for gynecological examination (general) (routine) without abnormal findings Plan Discussed: Current recommendations for pap smears per ASCCP guidelines. Breast awareness and periodic breast exams. Maintain a healthy lifestyle including a well balanced diet and routine exercise. Discussed the benefits of vitamins with folic acid for the prevention of neural tube defects. Use condoms for STI and prevention, prefers a future so the plan would be to start vitamins. Monitor cycles if late to a home test if positive reached out to the office for follow-up care. Staff will check on the status of her urogynecology referral and recommend she reschedule that appointment. Plan labs following her visit today. Sign up for patient portal. Patient verbalizes understanding and agrees to the plan of care. She was given opportunity to ask questions and all questions were answered to the best of my ability. RTO in one year for annual missile facilities repairer examination. This note is constructed using voice recognition software. While every effort has been made to ensure accuracy, rigger supervisor errors may have been included. Orders: Orders CT NG by PCR Today Z20.2 - Contact with and (suspected) exposure to infections with a predominantly sexual mode of transmission HIV Ab/Ag Today Z20.2 - Contact with and (suspected) exposure to infections with a predominantly sexual mode of transmission Hepatitis B Core Antibody Today Z20.2 - Contact with and (suspected) exposure to infections with a predominantly sexual mode of transmission Syphilis Screen Today Z20.2 - Contact with and (suspected) exposure to infections with a predominantly sexual mode of transmission Pap Smear Today Z01.419 - Encounter for gynecological examination (general) (routine) without abnormal findings Hepatitis C Antibody Today Z20.2 - Contact with and (suspected) exposure to infections with a predominantly sexual mode of transmission Medications: New PNV,calcium 26-phax-mydnp acid 27 mg iron- 1 mg ( Vitamins Plus Low Iron) 1 tab PO DAILY 90 tabs 4RF Coding Level of Care Code Est Pt Prev Care 18-39y(83272) Diagnoses Encounter for well woman exam with routine gynecological exam Z01.419
== END 2023-07-16 15:15 | disposition home or self-care (01) ==
PROVIDERS: PCP Nurse Practitioner Family; Visit Provider Advanced Practice Midwife
DX: Z01.419 Encounter for gynecological examination (general) (routine) without abnormal findings (principal)
CPT/HCPCS: 99395

== ENCOUNTER 2023-07-16 14:17 | Outpatient (REF) | payer OTHER, SELFPAY | END 2023-07-16 14:18 | disposition home or self-care (01) | LOC: HO.LNP 14:17 | PROVIDERS: PCP Nurse Practitioner Family; Visit Provider Advanced Practice Midwife | DX: Z01.419 Encounter for gynecological examination (general) (routine) without abnormal findings (principal) | CPT/HCPCS: 0353U; 86704; 86780; 86803; 87389; 88142; 99395 ==

== ENCOUNTER 2023-07-16 15:15 | Outpatient (REF) | payer OTHER, SELFPAY ==
[2023-07-16 18:06] LABS: CT PCR NOT DETECTED (Not Detect.); NG PCR NOT DETECTED (Not Detect.)
[2023-07-17 07:14] LABS: Syphilis Screen Nonreactive (Nonreactive)
[2023-07-17 07:19] LABS: HBc Num1 0.17 S/CO (0.00-0.79); HIV AB/AG Nonreactive (Nonreactive); Hepatitis B Core Antibody Nonreactive (Nonreactive); ~HepC Num1 0.12 S/CO (0.00-0.79); ~Hepatitis C Antibody Nonreactive (Nonreactive)
== END 2023-07-16 15:16 | disposition home or self-care (01) ==
LOC: HO.LAB 15:15
PROVIDERS: Nurse Practitioner Family; Visit Provider Advanced Practice Midwife
DX: Z11.3 Encounter for screening for infections with a predominantly sexual mode of transmission (principal); Z20.2 Contact with and (suspected) exposure to infections with a predominantly sexual mode of transmission
CPT/HCPCS: 0353U; 86704; 86780; 86803; 87389

== ENCOUNTER 2023-09-06 00:58 | Emergency (ER) | payer OTHER, SELFPAY ==
--- NOTE | ~2023-09-06 | US_ITS ---
EXAMINATION: US OBSTETRICAL ULTRASOUND CLINICAL INFORMATION: patient with pain. COMPARISON: None available. LMP: 08/30/2023. Gestational age by maternal dates is 1 week 0 days. Estimated date of delivery by maternal dates is 03/06/2024. TECHNIQUE: Suprapubic and transvaginal ultrasound performed. FINDINGS: The uterus is normal in appearance measuring 8.3 x 4.5 x 3.6 cm. There is an apparent intrauterine gestational sac with mean sac data suggesting a 5 week 3 day gestation. No pole identified. MATERNAL ADNEXA: The right maternal ovary measures 4.4 x 2.9 x 3.1 cm. The left maternal ovary measures 2.8 x 1.7 x 2.4 cm. There is no significant maternal adnexal mass. There is a small to moderate amount of free fluid within the adnexa. US/US OB pelvic and transvaginal IMPRESSION: Apparent intrauterine gestational sac with mean sac diameter suggesting a 5 week 3 day gestation. No pole currently seen. Finding suggests early . Free fluid within the pelvis. Ectopic is not excluded and correlation with quantitative beta-hCG and follow-up is needed.
[2023-09-06 01:08] VITALS: BP 128/77; PULSE 83; RESP 16; TEMP 36.9; O2SAT 100; BMI 30.1
[2023-09-06 01:25] LABS: MANUAL DIFF FLAG NO
[2023-09-06 01:26] LABS: Basophils Percent Auto 0.2 % (0-2); Eosinophils Absolute Auto 0.1 X10*3/uL (0.0-0.4); Eosinophils Percent Auto 0.7 % (0-4); Hematocrit 39.2 % (37.0-47.0); Hemoglobin 13.1 g/dl (12.0-16.0); Imm Gran Abs Auto 0.02 X10*3/uL (0.00-0.03); Imm Gran Pct Auto 0.2 % (0.0-0.4); Lymphocytes Absolute Auto 2.3 X10*3/uL (1.2-4.9); Lymphocytes Percent Auto 26.6 % (20-40); Mean Corpuscular HGB Conc 33.4 g/dl (31.0-35.0); Mean Corpuscular Hemoglobin 26.7 pg (27.0-33.0); Mean Corpuscular Volume 79.8 fL (80.0-98.0); Mean Platelet Volume 10.3 fL (9.4-12.3); Monocytes Absolute Auto 0.9 X10*3/uL (0.1-1.2); Neutrophils Absolute Auto 5.3 x10*3/uL (2.0-8.3); Neutrophils Percent Auto 62.3 % (45-73); Platelet Count 249 X10*3/uL (160-400); Red Blood Count 4.91 X10*6/uL (4.20-5.50); Red Cell Distribution Width 13.4 % (11.0-16.0); White Blood Count 8.6 X10*3/uL (4.8-10.8)
[2023-09-06 01:27] LABS: Appearance Urine Clear; Color Urine Yellow; Glucose Urine UA Negative (Negative); Leukocyte Esterase Urine Negative (Negative); Nitrite Urine Negative (Negative); Specific Gravity - Urine <= 1.005 (1.005-1.025); Urine Blood Negative (Negative); Urine Ketones Negative (Negative); Urine Protein Negative (Neg-Trace)
[2023-09-06 01:47] LABS: Alanine Aminotransferase 14 U/L (0-31); Albumin Level 4.2 g/dL (3.5-5.0); Alkaline Phosphatase 29 U/L (39-117); Anion Gap 12 (12-20); Aspartate Amino Transferase 19 U/L (5-31); Bilirubin Total 0.2 mg/dL (0.0-1.0); Blood Urea Nitrogen 5 mg/dL (9-16); Calcium 9.2 mg/dL (8.4-10.2); Carbon Dioxide 20 mmol/L (22-29); Chloride 109 mmol/L (96-108); Creatinine Clr Calc Pharmacy 114.2; Estimated Glomerular Filt Rate > 60; Glucose Random 75 mg/dL (60-115); HCG Quantitative 9215 mIU/mL; Potassium 4.1 mmol/L (3.3-5.1); Sodium 137 mmol/L (135-145); Total Protein 7.9 g/dL (6.5-8.0)
--- NOTE | 2023-09-06 02:21 | ED.ABDPAIN ---
HPI - Abdominal Pain General Chief Complaint: Abdominal Pain Stated Complaint: +preg w/ cramping Time Seen by Provider: 09/06/23 02:14 Source: patient Mode of arrival: ambulatory Limitations: no limitations History of Present Illness HPI narrative: Patient comes to the emergency room complaining of abdominal cramping. Patient states that today she had abdominal cramping, and took a home test which was positive. Patient states that she became very concerned because she has had a miscarriage in the past. Patient denies vaginal bleeding. Related Data Previous Rx's Medication Instructions Recorded vitamin with calcium 1 tab PO DAILY #90 tabs 07/16/23 no.72-iron 27 mg-folic acid 1 mg tablet ( Vitamins Plus Low Iron) Allergies Allergy/AdvReac Type Severity Reaction Status Date / Time No Known Allergies Allergy Verified 09/06/23 01:08 [No Known Allergies*] [facility] Past Medical History Medical History Concern about complication without diagnosis Patient denies medical problems Surgical History No pertinent past surgical history Family History Family History Mother No problems noted. Father No problems noted. Social History Social History Housing: House Alcohol intake: never Patient Tobacco Use Status: Never used Tobacco Advance Directives: No Advance Directives Information Provided: No service: No Current occupational status: employed Cognitive needs: No Hearing needs: No Vision needs: No Physical Exam ED Vital Signs: Vital Signs - 24 hr 09/06/23 01:08 Temperature 98.5 F Pulse Rate 83 Respiratory Rate 16 Blood Pressure 128/77 Pulse Oximetry 100 Oxygen Delivery Method Room Air BMI result Body Mass Index 30.1 Medical Decision Making Lab Data 09/06/23 01:17 09/06/23 01:17 Labs: Lab Results 09/06/23 Range/Units 01:17 WBC 8.6 (4.8-10.8) X10*3/uL RBC 4.91 (4.20-5.50) X10*6/uL Hgb 13.1 (12.0-16.0) g/dl Hct 39.2 (37.0-47.0) % MCV 79.8 L (80.0-98.0) fL MCH 26.7 L (27.0-33.0) pg MCHC 33.4 (31.0-35.0) g/dl RDW 13.4 (11.0-16.0) % Plt Count 249 (160-400) X10*3/uL MPV 10.3 (9.4-12.3) fL Immature Gran % (Auto) 0.2 (0.0-0.4) % Neut % (Auto) 62.3 (45-73) % Lymph % (Auto) 26.6 (20-40) % Levy % (Auto) 10.0 (2-11) % Eos % (Auto) 0.7 (0-4) % Baso % (Auto) 0.2 (0-2) % Lymph # (Auto) 2.3 (1.2-4.9) X10*3/uL Levy # (Auto) 0.9 (0.1-1.2) X10*3/uL Eos # (Auto) 0.1 (0.0-0.4) X10*3/uL Baso # (Auto) 0.0 (0.0-0.2) X10*3/uL Abs Immat Gran (auto) 0.02 (0.00-0.03) X10*3/uL Absolute Neuts (auto) 5.3 (2.0-8.3) x10*3/uL Absolute Nucleated RBC 0.000 (0.0-0.012) X10*3/uL Nucleated RBC % (auto) 0.0 (0.0-0.2) /100WBC Sodium 137 (135-145) mmol/L Potassium 4.1 (3.3-5.1) mmol/L Chloride 109 H (96-108) mmol/L Carbon Dioxide 20 L (22-29) mmol/L Anion Gap 12 (12-20) BUN 5 L (9-16) mg/dL Creatinine 0.73 (0.5-1.4) mg/dL Estim Creat Clear Calc 114.2 Estimated GFR > 60 Random Glucose 75 (60-115) mg/dL Calcium 9.2 (8.4-10.2) mg/dL Total Bilirubin 0.2 (0.0-1.0) mg/dL AST 19 (5-31) U/L ALT 14 (0-31) U/L Alkaline Phosphatase 29 L (39-117) U/L Total Protein 7.9 (6.5-8.0) g/dL Albumin 4.2 (3.5-5.0) g/dL Beta HCG, Quant 9215 mIU/mL Urine Color Yellow Urine Appearance Clear Urine pH 7.0 (5.0-9.0) Ur Specific [place] <= 1.005 (1.005-1.025) Urine Protein Negative (Neg-Trace) mg/dL Urine Glucose (UA) Negative (Negative) mg/dL Urine Ketones Negative (Negative) mg/dL Urine Blood Negative (Negative) Urine Nitrite Negative (Negative) Ur Leukocyte Esterase Negative (Negative) Discharge Plan Discharge Clinical Impression: Patient Disposition: Home, Self-Care Instructions: (ED) Additional Instructions: On Thursday morning as earliest possible, please report to the outpatient lab to have your labs drawn. At any time, if you have any abdominal pain, spotting, vaginal bleeding, please return to the emergency room. Prescriptions: No Action Vitamin Plus Low Iron 27 mg iron- 1 mg tablet 1 tab PO DAILY Qty: 90 4RF Referrals: Gamaliel Leon MD [Physician] - 09/09/23
[2023-09-06 04:38] VITALS: BP 127/82; PULSE 76; RESP 16; TEMP 36.7; O2SAT 100
== END 2023-09-06 04:39 | disposition home or self-care (01) ==
PROVIDERS: Emergency Provider Emergency Medicine; PCP Nurse Practitioner Family
DX: O26.899 Other specified pregnancy related conditions, unspecified trimester (principal); R10.9 Unspecified abdominal pain; Z3A.00 Weeks of gestation of pregnancy not specified
CPT/HCPCS: 36415; 76801; 76817; 80053; 81003; 84702; 85025; 99282; 99284

== ENCOUNTER 2023-09-08 14:52 | Outpatient (REF) | payer OTHER, SELFPAY ==
[2023-09-09 13:40] LABS: CT PCR NOT DETECTED (Not Detect.); NG PCR NOT DETECTED (Not Detect.)
== END 2023-09-08 14:53 | disposition home or self-care (01) ==
LOC: HO.LAB 14:52
PROVIDERS: Visit Provider Advanced Practice Midwife
DX: Z20.2 Contact with and (suspected) exposure to infections with a predominantly sexual mode of transmission (principal)
CPT/HCPCS: 0353U

== ENCOUNTER 2023-11-28 22:54 | Emergency (ER) | payer OTHER, SELFPAY ==
[2023-11-28 23:17] VITALS: BP 122/81; PULSE 77; RESP 16; TEMP 37; O2SAT 99; BMI 32.8
--- OUTSIDE RECORDS SUMMARY | 2023-11-29 00:58 | XMS_ITS | Continuity of Care Document ---
Author Organization [facility] Address [address] [place] [address]- Care Team Providers Care Cad Designer Name Role Phone Leslie Barahona MD Primary Care Physician [place] [facility] [place](s): 06/17/23 - 07/31/[address] [address] Attending Physician: Melissa Longoria DO Admitting Physician: Melissa Longoria DO Allergies, Adverse Reactions, Alerts No Known Medication Allergies Medications fluconazole 150 mg oral tablet 1 tablet = 150 mg, By Mouth, Once, # 1 tablet, 0 Refills, Soft Stop, 06/04/23 11:41:00 EST, Tablet,[id number], Partial fill upon patient request if the prescription is for a schedule II opioid drug., 158, cm, 06/04/23 10:51:00 EST, Height, 73... Start Date: 06/04/23 Status: Ordered Patient Care team information Care Team Personnel Name: Leslie Barahona MD Position: S Outreach Member Role: PCP Address: Address: [address] [place] [address]- Care Team Related Persons Name: ERLINDA PATEL Address: home [address] [place] [address] Name: IZABELLA TAM Address: home [address] [place] [address] Name: PATIENT, STATES NOONE
--- OUTSIDE RECORDS SUMMARY | 2023-11-29 00:58 | XMS_ITS | Continuity of Care Document ---
Author Organization [facility] Arsenio [facility] Address [address] [place] [address], [address] [place] [address]- Care Team Providers Care Nurse Name Role Phone Leslie Barahona MD Primary Care Physician [phone] [id number] - [facility] Ludy GemmaDrexel [employer] [facility] [address] [facility], [address] [place] [address]- Attending Physician: Melissa Longoria DO Admitting Physician: Melissa Longoria DO Referring Physician: Leslie Barahona MD Allergies, Adverse Reactions, Alerts No Known Medication Allergies Medications fluconazole 150 mg oral tablet 1 tablet = 150 mg, By Mouth, Once, # 1 tablet, 0 Refills, Soft Stop, 06/04/23 11:41:00 EST, Tablet,[id number], Partial fill upon patient request if the prescription is for a schedule II opioid drug., 158, cm, 06/04/23 10:51:00 EST, Height, 73... Start Date: 06/04/23 Status: Ordered Patient Care team information Care Team Personnel Name: Leslie Barahona MD Position: [facility] Outreach Member Role: PCP Address: Address: [address] [place] [address]- Care Team Related Persons Name: ERLINDA PATEL Address: home [address] [address] Name: IZABELLA TAM Address: home [address] [address] Name: PATIENT, STATES NOONE
--- OUTSIDE RECORDS SUMMARY | 2023-11-29 00:58 | XMS_ITS | Continuity of Care Document ---
Author Organization [facility] [employer]senio [employer] [facility] Address [address] [place] [address], [address] [place] [address]- Care Team Providers Care Bathhouse Keeper Name Role Phone Leslie Barahona MD Primary Care Physician [phone] [id number] Date(s): 07/16/[facility] - 08/15/23 [facility] [address] [facility], [address] [place] [address]- Attending Physician: Markell Segovia Admitting Physician: AdmtrMarkell Referring Physician: Admtr ArRanjith Allergies, Adverse Reactions, Alerts No Known Medication Allergies Medications fluconazole 150 mg oral tablet 1 tablet = 150 mg, By Mouth, Once, # 1 tablet, 0 Refills, Soft Stop, 06/04/23 11:41:00 EST, Tablet,[id number], Partial fill upon patient request if the prescription is for a schedule II opioid drug., 158, cm, 06/04/23 10:51:00 EST, Height, 73... Start Date: 06/04/23 Status: Ordered Patient Care team information Care Team Personnel Name: Leslie Barahona MD Position: [facility] Outreach Member Role: PCP Address: Address: [address] [place] [address] - Care Team Related Persons Name: ERLINDA PATEL Address: home [address] [place] [address] Name: IZABELLA TAM Address: home [address] [place] [address] Name: PATIENT, STATES NOONE
--- OUTSIDE RECORDS SUMMARY | 2023-11-29 00:58 | XMS_ITS | Continuity of Care Document ---
Author Organization [facility] Arsenio nAruspe[facility] Address [address] [facility], [address] [place] [address]- Care Team Providers Care Nursing Care Attendant Name Role Phone Leslie Barahona MD Primary Care Physician Encounter [facility] R [id number] Date(s): 06/04/23 - 07/04/23 [facility] Ludy GemmaArus[facility] [address] [facility], [address] [place] [address]- Attending Physician: Markell Segovia Admitting Physician: AdmMarkell pemberton Referring Physician: AdmtrMarkell Allergies, Adverse Reactions, Alerts No Known Medication Allergies Medications fluconazole 150 mg oral tablet 1 tablet = 150 mg, By Mouth, Once, # 1 tablet, 0 Refills, Soft Stop, 06/04/23 11:41:00 EST, Tablet,[facility]/pharm[facility] #[id number], Partial fill upon patient request if the prescription is for a schedule II opioid drug., 158, cm, 06/04/23 10:51:00 EST, Height, 73... Start Date: 06/04/23 Status: Ordered Radiology * Event Display: MRI Pelvis, Non- Authored Date: Patient Care team information Care Team Personnel Name: Leslie Barahona MD Position: S Outreach Member Role: PCP Address: Address: [address] [place] [address]- Care Team Related Persons Name: ERLINDA PATEL Address: home [address] [place] [address] Name: IZABELLA TAM Address: home [address] [facility] [address] [place] [address] Name: PATIENT, STATES NOONE
--- OUTSIDE RECORDS SUMMARY | 2023-11-29 00:58 | XMS_ITS | Continuity of Care Document ---
Author Organization [facility] Arsenio mathisZykis [facility] Address [address] [place] [address], [address] [address]- Care Team Providers Care Purchasing Agent Name Role Phone Jun Leslie GRULLON Primary Care Physician Encounter [facility] Date(s): 06/04/23 - 06/11/23 [facility] [employer] [facility] [address] [facility] 4[address] [place], [place] [address] Attending Physician: Melissa Longoria DO Allergies, Adverse Reactions, Alerts No Known Medication Allergies Medications fluconazole 150 mg oral tablet 1 tablet = 150 mg, By Mouth, Once, # 1 tablet, 0 Refills, Soft Stop, 06/04/23 11:41:00 EST, Tablet,[id number], Partial fill upon patient request if the prescription is for a schedule II opioid drug., 158, cm, 06/04/23 10:51:00 EST, Height, 73... Start Date: 06/04/23 Status: Ordered Vital Signs Most recent to oldest [Reference Range]: 1 Height 158 cm (06/04/23 10:51 AM) Weight 73.0 kg (06/04/23 10:51 AM) Body Mass Index [18.5-24.99 kg/m2] 29.24 kg/m2 *H* (06/04/23 10:51 AM) Blood Pressure [90-138/55-84 mm Hg] 110/ 62mm Hg (06/04/23 10:51 AM) Blood pressure sites Arm, right (06/04/23 10:51 AM) Dry Weight 73.0 kg (06/04/23 10:51 AM) Weight Obtained Via Standing scale (06/04/23 10:51 AM) Dry Weight Obtained Via Standing scale (06/04/23 10:51 AM) Patient Care team information Care Team Personnel Name: Leslie Barahona MD Position: [facility] Outreach Member Role: PCP Address: Address: [address] [place] [address]- Care Team Related Persons Name: ERLINDA PATEL Address: home [address] [address] Name: IZABELLA TAM Address: home [address] [address] Name: PATIENT, STATES NOONE
--- OUTSIDE RECORDS SUMMARY | 2023-11-29 00:58 | XMS_ITS | Continuity of Care Document ---
Author Organization [facility] ter Address [address] [place] [id number]- Care Team Providers Care Corporate Lawyer Name Role Phone Leslie Barahona MD Primary Care Physician Encounter [facility] Date(s): 05/21/23 - 05/21/[address] [address] Discharge Disposition: A-D/C Home Attending Physician: Candace Hoover MD Admitting Physician: Candace Hoover MD Referring Physician: Candace Hoover MD Allergies, Adverse Reactions, Alerts No Known Medication Allergies Vital Signs Most recent to oldest [Reference Range]: 1 Height 158 cm (05/21/23 9:10 AM) Oxygen Saturation [94-100 %] 99 % (05/21/23 9:18 AM) Pulse Rate [55-90 bpm] 73 bpm (05/21/23 9:18 AM) Blood Pressure [90-138/55-84 mm Hg] 109/ 63mm Hg (05/21/23 9:18 AM) Respiratory Rate [16-30 br/min] 16 br/mi n (05/21/23 9:18 AM) Temperature [96.8-100.4 DegF] 98.5 DegF (05/21/23 9:18 AM) Temperature Route Oral (05/21/23 9:18 AM) Note * Africa Contreras RN: PERFORM Event Display: Discharge/Transfer Note Hospital Authored Date: [id number] Nursing Discharge Note Entered On: 05/21/2023 10:53 EST Performed On: 05/21/2023 10:52 EST by Africa Contreras RN Nursing Discharge Note 2 Discharge Time : 05/21/2023 10:52 EST Discharge Level of Care at Discharge : Home/Half-Way/Foster Care Patient Left Unit Via : Ambulatory Patient Accompanied Off Unit with : Significant other DC Instructions Provided & Signed by Pt : Yes Patient Understands D/C Instructions : Yes Patient Instructions Discharge Signed : Yes Did Pt have Specialty Bed or Wound Vac : No Africa Contreras RN - 05/21/2023 10:52 EST * Africa Contreras RN: PERFORM Event Display: Patient Education/Instruction Authored Date: [id number] Inpatient Adult Discharge Instructions [address] [address] Name: GERMAN ESCAMILLA : 2000 Visit: 05/21/2023 09:04:00 Current Date: 05/21/2023 10:47 Account: [id number] Inpatient Adult Discharge Instructions We would like to thank you for allowing us to assist you with your healthcare needs. The following includes patient education materials and information regarding your injury/illness. Our entire staffstrives to provide an excellent experience for our patients and their families. PLEASE ENSURE YOU FOLLOW-UP PER THE INSTRUCTIONS BELOW! ?? YOUR OPINION IS IMPORTANT TO US! Please complete the survey you may receive by mail or email. Your feedback will be used to make improvements to the healthcare experiences of our patients and their families. Surveys are administered by [employer] ?? If further treatment with your primary care physician or another doctor is recommended, it is important for you to keep the appointment. Call your primary care physician or return to the Emergency Department immediately if your condition worsens, fails to improve, or new symptoms develop. If you need to find a doctor, you can call [facility] Link for a referral at [phone] or toll free at [phone]) or log in to [email or web address].. ?? [facility], in keeping with [facility] guidance, no longer requires face masks for staff, patientsor visitors in most situations. Similiar to time spent indoors at other locations, there is the chance that you were exposed to repiratory viruses during your time with us (such as flu or COVID-19). If you develop symptoms concerning for a viral respiratory infection, please seek testing (and treatment if indicated) from your medical provider or home test kit. ?? You can view and manage your care through the patient portal or by using a health care nisha of your choosing. [employer] is a website that allows you to securely view your medical information including your hospital discharge summary, office visit summaries, medications and follow-up visits. You can also request appointments, renew medications, and request access to your medical information using a health care nisha of your choosing, or just ask a question. You can enroll at [email or web address] or register during your next office visit. You have been discharged from [facility], Patient Care Unit: WETU1. If you have any questions regarding these instructions after you leave, please call us and we will be happy to assist you. [facility] Your Care Team Attending Physician Sneha GRULLON, Candace Friedman Reason for Admission vaginal cyst that pt wants popped Tests Performed Below is a partial list of the tests performed during your hospitalization. You may have had other tests and procedures not included in this list. Please discuss all test results with your provider. Primary Care Provider Not on Staff, PCP Advance Directive Health Care Proxy on File No Discharge Vitals Temperature: 98.5 DegF Height: 158 cm Pulse Rate: 73 bpm ?? Respiratory Rate: 16 br/min ?? Systolic Blood Pressure: 109 mm Hg ?? Diastolic Blood Pressure: 63 mm Hg ?? Oxygen Saturation: 99 % ?? Studies Pending All tests and labs ordered during this hospital stay have been completed unless listed below. Please discuss all pending results with your provider listed above in these instructions. ?? No incomplete studies found What to do next Instructions From Your Doctor Discharge Orders You Need to Schedule the Following Appointments Follow Up with??Urogynecology When:??Within PCP office will call for follow up care Why: office will??call with follow up appt and plan ?? Discharge Medications MORRO ESCAMILLATOMBERNY :2000 Visit Date:05/21/2023 Medications: Please continue your medications until treatment is completed or stopped by your provider. Medications not listed below should be discontinued. Discuss any questions related to medications with your provider. Test Results Below is a partial list of the most recent Laboratory test results done prior to this discharge. You may have had other tests and procedures not included in this list. Please discuss all test resultswith your provider. Allergies (NKA means No Known Allergies) No Known Medication Allergies Problems No qualifying data available Education Materials Below is the list of Educational Leaflet Providered with your Discharge Instructions. Infected Epidermoid Cyst (Antibiotic Treatment)?? Valuables and Belongings I fully understand and agree that [facility] accepts no responsibility for all my personal property including clothing, toilet articles, radios, jewelry, dentures, hearing aids, rings, money, or any other property that is in my possession or is brought to me after admission. I understand certain valuables may be placed in a hospital safe for a short period of time. I understand that the hospital is not liable for loss or damage due to accident, fire, or other natural occurrence while said property is in the safe. I accept full responsibility for any personal property that I keep with me, and will not hold the hospital responsible in case of loss or disappearance. I acknowledge that i have been encouraged to send valuables and belongings home. ? Other Discharge Information ? Pulmonary Rehab Status?? Pulmonary Rehab Discharge Status?? Respiratory Rate: 16 br/min ? Common Emergency Awareness Tips IS IT A STROKE? Act FAST and Check for these signs: FACE Does the face look uneven? ARM Does one arm drift down? SPEECH Does their speech sound strange? TIME Call at any sign of stroke ?? Heart Attack Signs Chest discomfort: Most heart attacks involve discomfort in the center of the chest and lasts more than a few minutes, or goes away and comes back. It can feel like uncomfortable pressure, squeezing, fullness or pain. Discomfort in upper body: Symptoms can include pain or discomfort in one or both arms, back, neck, jaw or stomach. Shortness of breath: With or without discomfort. Other signs: Breaking out in a cold sweat, nausea, or lightheaded. Remember, MINUTES DO MATTER. If you experience any of these heart attack warning signs, call to get immediate medical attention! ?? Smoking can increase your chances of developing chronic health problems and can cause harmful effects to other family members in your house. If you smoke, you are strongly encouraged to quit. Please call [facility] Link at [phone] or [phone] ([phone]) or log in to [email or web address] for referrals to smoking cessation programs. ?? 988 Suicide & Crisis Lifeline is available 12/01 if you or someone you know needs to find a reason to keep living. By calling 755 you'll be connected to a skilled, trained counselor at a crisis center in your area. INPATIENT DISCHARGE INSTRUCTIONS SIGNATURE PAGE GERMAN ESCAMILLA Location:[facility] Registration Date and Time:05/21/2023 09:04 EST Primary Care Physician: Not on Staff, PCP Attending Physician: Candace Hoover MD, I GERMAN ESCAMILLA, have received the above patient education materials/instructions and have verbalized understanding. If ambulance or transport services are being used I further acknowledge beinggiven a choice of service. ?? If you need to contact me, please call me at this number: . Patient/Pathology Technologist Name: Patient/Pathology Technologist Signature: Relationship to Patient: Witness Name/Signature: Date: * Africa Contreras RN: PERFORM Event Display: Patient Education Leaflets Authored Date: [id number] Infected Epidermoid Cyst (Antibiotic Treatment) ?? [id number] Infected Epidermoid Cyst (Antibiotic Treatment) You have an epidermoid cyst. This is a small, painless lump under your skin. An epidermoid cyst??madisonften called an epidermal cyst, an epidermal inclusion cyst, or incorrectly, a sebaceous cyst. Epidermoid cysts form slowly under the skin. They can be found on most parts of the body. But they are most often found on areas with more hair such as the scalp, face, upper back, and genitals. Here are some general facts??about these cysts: ??? A cyst is a sac filled with material that is often cheesy, fatty, oily, or stringy. The material inside can be thick. Or it can be a liquid. ??? The area around the cyst may smell bad. If the cyst breaks open, the material inside it often smells bad as well. ??? You can usually move the cyst slightly if you try. ??? The cyst can be smaller than a pea or as large as a few inches. ??? The cyst is usually not painful, unless it becomes inflamed or infected. Your cyst became infected and your healthcare provider wants to treat it with antibiotics. You willlikely take the antibiotics by mouth or apply it as a cream, or both. If the antibiotics don???t clear up the infection, the cyst will need to be drained by making a small cut (incision). Local anesthesia will be used to numb the area before the incision and drainage. Home care ??? Resist the temptation to squeeze or pop the cyst, stick a needle in it, or cut it open. This often leads to a worsening infection and scarring. ??? If antibiotic pills were prescribed, take them exactly as directed. Finish the antibiotic prescribed, even though you may feel better after the first few days. ??? Soak the affected area in hot water or apply a hot pack (a thin, clean towel soaked in hot water) for 20 minutes at a time. Do this 3 to 4 times a day. ??? If your healthcare provider recommended it, apply antibiotic cream or ointment 2 to 3 times a day. ??? You may use xkwi-xwr-[id number] pain medicine to control pain, unless another medicine was given. If you have chronicliver or kidney disease or ever had a stomach ulcer or gastrointestinal bleeding, talk with your healthcare provider before using these medicines. ?? Prevention Once this infection has healed, reduce the risk of future infections by: ??? Keeping the cyst area clean by bathing or showering daily ??? Avoiding tight- fitting clothing in the cyst area ?? Follow-up care Follow up with your healthcare provider, or as advised. If a gauze packing was put in your wound, it should be removed in a few days as advised by your healthcare provider. Check your wound every dayfor the signs listed below. When to get medical advice Call your healthcare provider right away if any of these occur: ??? Pus coming from the cyst ??? Increasing redness around the wound ??? Increasing local pain or swelling ??? Fever of 100.4??F (38??C) or higher, or as advised by your provider ?? Last Reviewed Date: 2021 ?? [id number] [employer]. All rights reserved. This information is not intended as a substitute for professional medical care. Always follow your healthcare professional's instructions. ?? Patient Care team information Care Team Personnel Name: Leslie Barahona MD Position: [facility] Outreach Member Role: PCP Address: Address: [address] [place] [address]- Name: Africa Contreras RN Position: [facility] OB RN Member Role: Patient Care Provider Care Team Related Persons Name: ERLINDA PATEL Address: home [address] [address] Name: IZABELLA TAM Address: home [address] [address] Name: PATIENT, STATES NOONE
--- NOTE | 2023-11-29 01:25 | ED_ITS ---
HPI - General Adult General Chief complaint: Skin/Abscess/Foreign Body Stated complaint: body rash Time Seen by Provider: 11/29/23 01:01 Source: patient, RN notes reviewed and old records reviewed Mode of arrival: ambulatory Limitations: no limitations History of Present Illness ED Provider: Michelle WALTON narrative: 23-year-old female presents for evaluation of a rash. She states the rash started 7 days ago in the back of her neck. A few days ago it started to her inner thighs bilaterally and more recently she started with a rash both eyelids. She does not believe she used any new soaps, lotions, detergents with the exception of a face cream before the rash started below her eyes She states the rash is occasionally itchy but not painful. She denies any fevers, chills No other complaints or concerns at this time Denies any respiratory symptom Related Data Previous Rx's ?Medication ?Instructions ?Recorded vitamin with calcium 1 tab PO DAILY #90 tabs 07/16/23 no.72-iron 27 mg-folic acid 1 mg tablet ( Vitamins Plus Low Iron) hydrocortisone 2.5 % topical 1 appl topical BID 7 days #20 grams 11/29/23 ointment prednisone 20 mg tablet 40 mg (2 x 20 mg) PO DAILY #10 tabs 11/29/23 Allergies Allergy/AdvReac Type Severity Reaction Status Date / Time No Known Allergies Allergy Verified 11/28/23 23:22 [No Known Allergies*] Review of Systems Constitutional: Constitutional: Denies body ache(s), Denies chills and Denies fever(s) Eyes: Eyes: Denies blurry vision ENT: Denies sore throat Cardiovascular: Cardiovascular: Denies chest pain and Denies dyspnea Respiratory: Respiratory: Denies cough and Denies dyspnea Gastrointestinal: Gastrointestinal: Denies abdominal pain, Denies nausea and Denies vomiting Integumentary/Breasts: Skin/Breast: Reports pruritus and Reports rash PMFSH Past Medical History Medical History Concern about complication without diagnosis Patient denies medical problems Surgical History No pertinent past surgical history Family History Family History Mother No problems noted. Father No problems noted. Social History Social History Housing: House Unable to assess alcohol history related to: Unknown Alcohol intake: never Patient Tobacco Use Status: Never used Tobacco Smoked in Last 30 Days: No Use of substances other than those prescribed or required for medical reasons: Unknown Advance Directives: No Advance Directives Information Provided: No service: No Current occupational status: employed Cognitive needs: No Hearing needs: No Vision needs: No Physical Exam ED Vital Signs: Vital Signs - 24 hr 11/28/23 23:17 11/29/23 01:36 Temperature 98.6 F 98.6 F Pulse Rate 77 77 Respiratory Rate 16 16 Blood Pressure 122/81 122/81 Pulse Oximetry 99 99 Oxygen Delivery Method Room Air Room Air BMI result Body Mass Index 32.8 Const General: healthy appearing, comfortable, no acute distress, alert and awake Nutritional Appearance: well nourished Orientation/consciousness: patient oriented x3 HENMT Head: Yes normocephalic and Yes atraumatic Eyes Eyelids: Yes eyelids normal Conjunctivae: conjunctivae normal Sclerae: sclerae normal Corneas: corneas normal Pupils: Equal, round and reactive pupils present EOM: EOMs intact bilaterally Neck Neck: Yes full ROM Resp Effort & Inspection: normal respiratory effort, able to speak in complete sentences, not labored and no stridor Auscultation: no crackles, no rales, no rhonchi and no wheezes GI Inspection: No distended Palpation (GI): Soft to palpation, not firm, nontender, no guarding and not rigid Skin Other: Maculopapular rash localized to the posterior neck, bilateral inner thighs in a similar rash the inferior eyelids. No excoriations, no beefy red erythema. No facial edema. General skin exam: elasticity normal Neuro General: patient oriented x3 Cranial nerves: Yes Equal, round and reactive pupils present and Yes Bilaterally intact EOM present Cognition (Neuro): normal cognition Extrem Other: Moving all extremities well without any obvious deformities Medical Decision Making Medical Decision Making MDM Narrative: This is a rash that is spread out amongst her face, in his thighs and posterior neck. The rash appears most consistent with an allergic or hypersensitivity reaction. There is no evidence of bacterial infection. Will treat with Benadryl, prednisone and hydrocortisone. The patient was advised the put the hydrocortisone at her face Differential Diagnosis Differential Diagnoses: The differential diagnosis associated with the presentation includes Acute rash Dermatitis Hypersensitivity reaction Anaphylaxis Cellulitis less likely Discharge Plan Discharge Clinical Impression: Acute dermatitis Patient Disposition: Home, Self-Care Instructions: Dermatitis (ED) Additional Instructions: Your rash is most likely due to some sort of allergic reaction. You may use Benadryl as needed for itching. Use hydrocortisone cream twice daily for 7 days. Do not use this around your eyes or face Take prednisone as directed Prescriptions: New prednisone 20 mg tablet 40 mg PO DAILY Qty: 10 0RF hydrocortisone 2.5 % ointment 1 appl topical BID 7 Days Qty: 20 0RF No Action Vitamin Plus Low Iron 27 mg iron- 1 mg tablet 1 tab PO DAILY Qty: 90 4RF Interventions: ED Discharge Assessment Last Done: 11/29/23 01:36 Discharge Date/Time: 11/29/23 01:37 Print Language: Syriac
[2023-11-29 01:36] VITALS: BP 122/81; PULSE 77; RESP 16; TEMP 37; O2SAT 99
== END 2023-11-29 01:37 | disposition home or self-care (01) ==
PROVIDERS: Emergency Provider Student in an Organized Health Care Education/Training Program
DX: L30.9 Dermatitis, unspecified (principal)
CPT/HCPCS: 99283; 99284